=== PATIENT | male | born 1975 | race Caucasian/White ===

== ENCOUNTER 2024-04-22 21:03 | Emergency (ER) | payer OTHER, SELFPAY ==
[2024-04-22 21:07] VITALS: BP 159/95; PULSE 78; RESP 18; TEMP 36.9; O2SAT 97; BMI 29.2
[2024-04-22 21:29] LABS: Hematocrit 44.5 % (42.0-52.0); Hemoglobin 15.4 g/dl (14.0-18.0); Mean Corpuscular HGB Conc 34.6 g/dl (31.0-36.0); Mean Corpuscular Hemoglobin 33.2 pg (27.0-33.0); Mean Corpuscular Volume 95.9 fL (80.0-98.0); Mean Platelet Volume 9.2 fL (9.4-12.4); Platelet Count 216 X10*3/uL (160-400); Red Blood Count 4.64 X10*6/uL (4.60-5.80); Red Cell Distribution Width 11.8 % (11.0-16.0); White Blood Count 6.1 X10*3/uL (4.8-10.8)
[2024-04-22 21:48] LABS: Anion Gap 12 (12-20); Blood Urea Nitrogen 33 mg/dL (9-16); Calcium 9.2 mg/dL (8.4-10.2); Carbon Dioxide 23 mmol/L (22-29); Chloride 110 mmol/L (96-108); Creatinine Clr Calc Pharmacy 105.7; Estimated Glomerular Filt Rate > 60; Glucose Random 142 mg/dL (60-115); Potassium 4.3 mmol/L (3.3-5.1); Sodium 141 mmol/L (135-145)
--- NOTE | 2024-04-22 22:29 | ED_ITS ---
HPI - General Adult General Chief complaint: General Medical Stated complaint: ?Bee sting Time Seen by Provider: 04/22/24 22:25 Source: patient Mode of arrival: ambulatory Limitations: no limitations History of Present Illness ED Provider: Dr. Castillo HPI narrative: patient believe he was stung or bitten by something on his left forearm, he develeped a blister that popped and he states that pus come out. No fever Onset (ago): hour(s) Severity: mild Related Data Previous Rx's ?Medication ?Instructions ?Recorded bacitracin 500 unit/gram topical 1 appl topical DAILY #14 grams 04/22/24 ointment cephalexin 500 mg capsule 500 mg PO Q6H 5 days #20 caps 04/22/24 Allergies Allergy/AdvReac Type Severity Reaction Status Date / Time almond Allergy Itching Verified 04/22/24 21:11 Review of Systems 2 Review of Systems: Yes all other systems are reviewed and are negative Neurologic: Denies Sensory deficit (Neuro) [facility] Social History Social History Advance Directives: No Advance Directives Information Provided: No Do you have a plan to hurt others: No Plan Physical Exam ED Vital Signs: Vital Signs - 24 hr 04/22/24 21:07 04/22/24 22:45 Temperature 98.4 F 97.8 F Pulse Rate 78 62 Respiratory Rate 18 18 Blood Pressure 159/95 H 129/88 Pulse Oximetry 97 96 Oxygen Delivery Method Room Air Room Air BMI result Body Mass Index 29.2 Const General: healthy appearing Nutritional Appearance: average body habitus Orientation/consciousness: oriented to person and patient oriented x3 Limitations: no limitations HENMT Head: Yes normal to inspection Ears: external ears normal General nose exam: Normal external nose present Mouth: Normal oral and palatal mucosa present and oropharynx normal Throat: Yes posterior oropharynx normal Eyes General: appearance normal, both eyes and all related structures Neck Neck: Yes normal visual inspection Chest Chest palpation & inspection: normal inspection of the chest Resp Auscultation: clear to auscultation bilaterally Cardio Jugular venous distension: no JVD Rate: regular rate Rhythm: regular rhythm Heart sounds: S1 normal heart sound present and S2 normal heart sound present GI Inspection: Yes normal to inspection Palpation (GI): Soft to palpation, nontender and No hepatosplenomegaly present Auscultation: normal bowel sounds General: Yes no CVA tenderness Back/Spine/Pelvis Back: no CVA tenderness Skin Other: left forearm with bulla that popped with lymphedema leakage. There is surrounding erythema Neuro General: oriented to person and patient oriented x3 Cranial nerves: Yes CN's II-XII intact bilaterally Motor exam (neuro): 5/5 motor strength present throughout Sensory Exam: No Sensory deficit (Neuro) Extrem General: Yes normal to inspection Psych Appearance: grossly normal Course Reevaluation(s) Reevaluation #1: The bullae and drainage and erythema all look more like allergic reaction than true celluliitis. However, the wound is open and I will put on five days of keflex and bacitracin. Patient can take benadryl for itching Time: 22:54 Medical Decision Making Differential Diagnosis Differential Diagnoses: The differential diagnosis associated with the presentation includes (cellulitis, abscess, insect bite, allergic reaction) Admission/Observation Consideration of admission/observation: Escalation of care including admission/observation considered (upon arrival patient was considered for admission) Lab Data 04/22/24 21:24 04/22/24 21:24 Labs: Lab Results 04/22/24 Range/Units 21:24 WBC 6.1 (4.8-10.8) X10*3/uL RBC 4.64 (4.60-5.80) X10*6/uL Hgb 15.4 (14.0-18.0) g/dl Hct 44.5 (42.0-52.0) % MCV 95.9 (80.0-98.0) fL MCH 33.2 H (27.0-33.0) pg MCHC 34.6 (31.0-36.0) g/dl RDW 11.8 (11.0-16.0) % Plt Count 216 (160-400) X10*3/uL MPV 9.2 L (9.4-12.4) fL Absolute Nucleated RBC 0.000 (0.0-0.012) X10*3/uL Nucleated RBC % (auto) 0.0 (0.0-0.2) /100WBC Sodium 141 (135-145) mmol/L Potassium 4.3 (3.3-5.1) mmol/L Chloride 110 H (96-108) mmol/L Carbon Dioxide 23 (22-29) mmol/L Anion Gap 12 (12-20) BUN 33 H (9-16) mg/dL Creatinine 0.86 (0.5-1.4) mg/dL Estim Creat Clear Calc 105.7 Estimated GFR > 60 Random Glucose 142 H (60-115) mg/dL Calcium 9.2 (8.4-10.2) mg/dL Discharge Plan Discharge Clinical Impression: Insect bite, Allergic contact dermatitis Patient Disposition: Home, Self-Care Prescriptions: New cephalexin 500 mg capsule 500 mg PO Q6H 5 Days Qty: 20 0RF bacitracin 500 unit/gram ointment 1 appl topical DAILY Qty: 14 0RF Referrals: Physician,None [Primary Care Provider] - 3 days Print Language: Divehi
[2024-04-22 22:45] VITALS: BP 129/88; PULSE 62; RESP 18; TEMP 36.6; O2SAT 96
[2024-04-22] MEDS: Diphth,Pertus(ACell),Tet Adult 0.5 ML SYRINGE IM (23:02)
[2024-04-22] MEDS: cephALEXin 500 MG CAPSULE PO (23:02)
[2024-04-22 23:07] VITALS: BP 129/88; PULSE 62; RESP 18; TEMP 36.6; O2SAT 96
== END 2024-04-22 23:07 | disposition home or self-care (01) ==
PROVIDERS: Emergency Provider Emergency Medicine
DX: S50.812A Abrasion of left forearm, initial encounter (principal); L23.9 Allergic contact dermatitis, unspecified cause; R53.83 Other fatigue; X58.XXXA Exposure to other specified factors, initial encounter; Y93.89 Activity, other specified; Y92.89 Other specified places as the place of occurrence of the external cause; Y99.8 Other external cause status; Z79.899 Other long term (current) drug therapy
CPT/HCPCS: 36415; 80048; 85027; 90471; 90715; 99282; 99284